=== PATIENT | male | born 1990 | race Caucasian/White ===

== ENCOUNTER 2019-09-28 12:54 | Emergency (ER) | payer BC ==
[2019-09-28] MEDS ORDERED: Lidocaine 1% 20 ML MDV INJECT ONE (13:36)
[2019-09-28] MEDS ORDERED: Bacitracin Oint 28.35 GM Tube TOP ONE (13:51)
--- NOTE | 2019-09-28 13:54 | EDM.PDOC ---
ED HPI GENERAL MEDICAL PROBLEM - General Chief Complaint: Laceration Stated Complaint: RT MIDDLE FINGER CUT Time Seen by Provider: 09/28/19 13:25 Source of Information: Reports: Patient History Limitations: Reports: No Limitations - History of Present Illness INITIAL COMMENTS - FREE TEXT/NARRATIVE: Was cleaning his ice machine at work when he cut the pad of the right middle finger. He attempted to put pressure on int but was not able to control the bleeding with that. There is a flap noted to the pad of the finger that is still attached on one side. He has good sensation to the tip of the finger. Minimal amount of pain noted. Onset: Today Location: Reports: Upper Extremity, Right Right Finger-Middle Pain Score (Numeric/FACES): 2 - Related Data Allergies Allergy/AdvReac Type Severity Reaction Status Date / Time Penicillins Allergy Rash Verified 09/28/19 13:00 Home Meds: Home Meds . [No Known Home Meds] 09/28/19 [History] Past Medical History - Past Health History Medical/Surgical History: Denies Medical/Surgical History Social & Family History - Family History Family Medical History: Noncontributory - Tobacco Use Smoking Status *Q: Never Smoker Second Hand Smoke Exposure: No - Caffeine Use Caffeine Use: Reports: None - Recreational Drug Use Recreational Drug Use: No ED ROS GENERAL - Review of Systems Review Of Systems: See Below Constitutional: Reports: No Symptoms Skin: Reports: Wound (right middle finger) ED EXAM, SKIN/RASH Exam: See Below Exam Limited By: No Limitations General Appearance: Alert, WD/WN, No Apparent Distress Skin: Warm, Dry, Wound/Incision (flap laceration to the pad of the right middle finger. This is contiuing to bleed in spite of the pressure that he has been applying. Good sensation noted distally to the tip of the finger.) ED SKIN PROCEDURES - Laceration/Wound Repair Right Middle Digit - 3rd (Middle) Appearance: Subcutaneous Distal NVT: Neuro & Vascular Intact Anesthetic Type: Digital Local Anesthesia - Lidocaine (Xylocaine): 1% Plain Local Anesthetic Volume: 4cc Skin Prep: Saline Exploration/Debridement/Repair: No Foreign Material Found Closed with: Sutures Lac/Wound length In cm: 1.2 Suture Size: 5-0 # of Sutures: 3 Suture Type: Nylon, Interrupted Tetanus Status Addressed: Yes Complications: No Complication Description: flap was easily realignned and 3 sutures were used to hold flap in place. This was fairly thin flap. Then applied steri strips over that. Discussed that since it was superficial that it ight not reattach and some of the skin may off. He voices understanding and bleeding hemostasis was achieved after sutures inserted. Course - Vital Signs Last Recorded V/S: Last Vital Signs Temp 97.3 F 09/28/19 13:02 Pulse 60 09/28/19 13:02 Resp 18 09/28/19 13:02 BP 141/89 H 09/28/19 13:02 Pulse Ox 96 09/28/19 13:02 - Orders/Labs/Meds Meds: Medications Discontinued Medications Generic Name Dose Route Start Last Admin Trade Name Freq PRN Reason Stop Dose Admin Bacitracin 0 gm 09/28/19 14:00 Bacitracin Oint TOP TID RICHY Bacitracin 0 gm 09/28/19 13:51 09/28/19 14:04 Bacitracin Oint TOP 09/28/19 13:52 Not Given STAT ONE Lidocaine HCl 20 ml 09/28/19 13:36 09/28/19 13:41 Xylocaine 1% INJECT 09/28/19 13:37 20 ml ONETIME ONE Administration Neomycin/Polymyxin/Bacitracin 0 gm 09/28/19 14:02 09/28/19 14:55 Triple Antibiotic Oint TOP 09/28/19 14:03 Not Given ONETIME ONE Neomycin/Polymyxin/Bacitracin 1 each 09/28/19 14:56 09/28/19 14:57 Triple Antibiotic Oint TOP 09/28/19 14:57 1 each ONETIME ONE Administration Departure - Departure Time of Disposition: 13:54 Disposition: Home, Self-Care 01 Condition: Good Clinical Impression: Laceration of finger of right hand Qualifiers: Encounter type: initial encounter Finger: middle finger Damage to nail status: without damage Foreign body presence: without foreign body Qualified Code(s): S61.212A - Laceration without foreign body of right middle finger without damage to nail, initial encounter - Discharge Information *PRESCRIPTION DRUG MONITORING PROGRAM REVIEWED*: Not Applicable *COPY OF PRESCRIPTION DRUG MONITORING REPORT IN PATIENT CALVIN: Not Applicable Instructions: Wound Care, Adult Referrals: PCP,Unknown [Primary Care Provider] - Forms: ED Department Discharge Additional Instructions: Keep clean and dry replace steri strip if it does fall off keep covered to keep clean stitches out in 10 days tylenol or advl as needed for pain Recheck or call clinic if any sign of infection Sepsis Event Note - Evaluation Sepsis Screening Result: No Definite Risk - Focused Exam Date Exam was Performed: 09/30/19 Time Exam was Performed: 14:17 - Problem List & Annotations (1) Laceration of finger of right hand SNOMED Code(s): 814277313 Code(s): S61.219A - LACERATION W/O FB OF UNSP FINGER W/O DAMAGE TO NAIL, INIT Status: Acute Priority: High Qualifiers: Encounter type: initial encounter Finger: middle finger Damage to nail status: without damage Foreign body presence: without foreign body Qualified Code(s): S61.212A - Laceration without foreign body of right middle finger without damage to nail, initial encounter - Problem List Review Problem List Initiated/Reviewed/Updated: Yes
[2019-09-28] MEDS ORDERED: Bacitracin Oint 28.35 GM Tube TOP SCH (14:00)
[2019-09-28] MEDS: Bacitracin/Neomycin/Polymyxin B Oint 28.4 GM Tube TOP ONE ×2 (14:03→14:55)
[2019-09-28] MEDS ORDERED: Bacitracin/Neomycin/Polymyxin B Oint 0.9 GM U/D Packet TOP ONE (14:56)
== END 2019-09-28 14:15 | disposition home or self-care (01) ==
LOC: CC.ED 12:54
DX: S61.212A Laceration without foreign body of right middle finger without damage to nail, initial encounter (principal); Z88.0 Allergy status to penicillin; W26.8XXA Contact with other sharp object(s), not elsewhere classified, initial encounter; Y99.0 Civilian activity done for income or pay; Y92.89 Other specified places as the place of occurrence of the external cause
CPT/HCPCS: 12001; 99282; A9270-GY; J2001

== ENCOUNTER 2020-08-18 03:20 | Emergency (ER) | payer BC ==
[2020-08-18] MEDS ORDERED: MVI, Adult with Vitamin K 10 ML, Folic Acid 1 MG, Thiamine 100 MG, Magnesium Sulfate 2 ... IV ONE ×5 (03:52)
[2020-08-18] MEDS ORDERED: LORazepam 2 MG/ML Syringe IVPUSH ONE (03:52)
--- NOTE | 2020-08-18 03:54 | EDM.PDOC ---
ED HPI GENERAL MEDICAL PROBLEM - General Chief Complaint: General Stated Complaint: hypoglycemia Time Seen by Provider: 08/18/20 03:45 Source of Information: Reports: Patient History Limitations: Reports: No Limitations - History of Present Illness INITIAL COMMENTS - FREE TEXT/NARRATIVE: This patient is a 30 year old male that presents to the ER with at bedside. Patient reports that started 2 days ago with sinus frontal headache, congestion, runny nose, "cold". He reports his has same symptoms of a cold. Patient reports that tonight he went out and started drinking. Patient reports he drank several beers. He reports going home after midnight and feeling fine. He reports he was drunk, but feeling fine. He reports he went to sleep, then at about 2:30am he had a runny nose that was "running like a faucet," and woke him up. He reports he woke up and was shaky all over. He reports that he started having numbness/tingling from his necks to the bilateral arms/hands/fingertips. The patient reports he has never felt this way before. Patient reports they both were positive for COVID in early March. reports they recently had a baby and a couple weeks ago both were tested for COVID antibodys and both still had them per . Onset: Today Onset Date: 08/18/20 Onset Time: 14:30 Location: Reports: Upper Extremity, Left, Upper Extremity, Right Quality: Reports: Other (numbness/tingling/shaking) Severity: Moderate Improves with: Reports: None Worsens with: Reports: None Associated Symptoms: Reports: No Other Symptoms, Headaches (frontal sinus), Nausea/Vomiting (nausea). Denies: Confusion, Chest Pain, Cough, cough w sputum, Diaphoresis, Fever/Chills, Loss of Appetite, Malaise, Rash, Seizure, Shortness of Breath, Syncope, Weakness - Related Data Allergies Allergy/AdvReac Type Severity Reaction Status Date / Time Penicillins Allergy Rash Verified 08/18/20 03:26 Home Meds: Home Meds . [No Known Home Meds] 09/28/19 [History] Past Medical History - Past Health History Medical/Surgical History: Denies Medical/Surgical History - Past Surgical History HEENT Surgical History: Reports: Eye Surgery Social & Family History - Family History Family Medical History: No Pertinent Family History - Tobacco Use Tobacco Use Status *Q: Never Tobacco User Second Hand Smoke Exposure: No - Caffeine Use Caffeine Use: Reports: Soda - Recreational Drug Use Recreational Drug Use: No ED ROS GENERAL - Review of Systems Review Of Systems: See Below Constitutional: Reports: No Symptoms HEENT: Reports: Rhinitis, Sinus Problem (congestion, frontal sinus headache) Respiratory: Reports: No Symptoms. Denies: Shortness of Breath, Cough, Sputum Cardiovascular: Reports: No Symptoms. Denies: Chest Pain, Dyspnea on Exertion, Edema, Lightheadedness, Palpitations, Syncope Endocrine: Reports: No Symptoms GI/Abdominal: Reports: Abdominal Pain (Reports chronic, generalized, not new today.), Nausea. Denies: Vomiting : Reports: No Symptoms Musculoskeletal: Reports: Other (shakey) Skin: Reports: No Symptoms Neurological: Reports: No Symptoms, Numbness (bilateral neck to arms to hands to fingers.), Tingling (bilateral neck to arms to hands to fingers.). Denies: Confusion, Dizziness, Seizure, Difficulty Walking, Gait Disturbance Psychiatric: Reports: Anxiety Hematologic/Lymphatic: Reports: No Symptoms Immunologic: Reports: No Symptoms ED EXAM, GENERAL - Physical Exam Exam: See Below Exam Limited By: No Limitations General Appearance: Alert, WD/WN, Anxious, Mild Distress (hyperventilating) Eye Exam: Bilateral Eye: EOMI, Normal Inspection, PERRL Ears: Normal External Exam, Normal Canal, Hearing Grossly Normal, Normal TMs Ear Exam: Bilateral Ear: Auricle Normal, Canal Normal, TM normal Nose: Normal Inspection, Normal Mucosa, No Blood Throat/Mouth: Normal Inspection, Normal Lips, Normal Teeth, Normal Gums, Normal Oropharynx, Normal Voice, No Airway Compromise Head: Atraumatic, Normocephalic Neck: Normal Inspection, Supple, Non-Tender, Full Range of Motion Respiratory/Chest: No Respiratory Distress, Lungs Clear, Normal Breath Sounds, No Accessory Muscle Use, Chest Non-Tender, Other (Pectus Excavatum chronic) Cardiovascular: Normal Peripheral Pulses, Regular Rate, Rhythm, No Edema, No Gallop, No JVD, No Murmur, No Rub Peripheral Pulses: 2+: Radial (L), Radial (R), Posterior Tibial (L), Posterior Tibial (R), Dorsalis Pedis (L), Dorsalis Pedis (R) GI/Abdominal: Normal Bowel Sounds, Soft, Non-Tender, No Organomegaly, No Distention, No Abnormal Bruit, No Mass, Pelvis Stable (Male) Exam: Deferred Rectal (Males) Exam: Deferred Back Exam: Normal Inspection, Full Range of Motion Extremities: Normal Inspection, Normal Range of Motion, Non-Tender, No Pedal Edema, Normal Capillary Refill Neurological: Alert, Oriented, Normal Cognition, Normal Gait, No Motor/Sensory Deficits Psychiatric: Anxious Skin Exam: Warm, Dry, Intact, Normal Color, No Rash Lymphatic: No Adenopathy Course - Vital Signs Last Recorded V/S: Last Vital Signs Temp 98 F 08/18/20 03:20 Pulse 97 08/18/20 03:20 Resp 18 08/18/20 03:20 BP 150/95 H 08/18/20 03:20 Pulse Ox 100 08/18/20 03:20 - Orders/Labs/Meds Orders: Active Orders 24 hr Category Date Time Status DRUG SCREEN, URINE (NPL) Stat Lab 08/18/20 03:53 Ordered ETOH [ETHANOL BLOOD MEDICAL] [CHEM] Stat Lab 08/18/20 04:10 Received MVI, Adult with Vitamin K [Infuvite Adult] 10 ml Med 08/18/20 03:52 Active Folic Acid 1 mg Thiamine [Vitamin B-1] 100 mg Magnesium Sulfate [Magnesium Sulfate 50%] 2 gm Sodium Chloride 0.9% [Normal Saline] 1,000 ml IV ONETIME Medication Orders Multivitamins/Minerals 10 ml/Folic Acid 1 mg/ Thiamine HCl 100 mg/ Magnesium Sulfate 2 gm / Sodium Chloride 1,015.2 mls @ 1,000 mls/hr IV ONETIME ONE Stop: 08/18/20 04:52 Last Admin: 08/18/20 04:34 Dose: 1,000 mls/hr Documented by: Labs: Laboratory Tests 08/18/20 08/18/20 08/18/20 Range/Units 03:47 03:47 03:47 WBC 10.6 H (5.0-10.0) 10^3/uL RBC 4.91 (4.50-6.00) 10^6/uL Hgb 15.5 (14.0-18.0) g/dL Hct 41.6 (40.0-54.0) % MCV 84.7 (82.0-94.0) fL MCH 31.6 (27.0-32.0) pg MCHC 37.3 (33.0-38.0) g/dL RDW Coeff of Glenny 11.3 (11.0-15.0) % Plt Count 252 (150-400) 10^3/uL Neut % (Auto) 82.4 (35-85) % Lymph % (Auto) 11.7 (10-55) % Wood % (Auto) 4.9 (0-16) % Eos % (Auto) 0.8 (0-5) % Baso % (Auto) 0.2 (0-3) % Neut # (Auto) 8.75 H (1.80-7.00) 10^3/uL Lymph # (Auto) 1.24 (1.00-4.80) 10^3/uL Wood # (Auto) 0.52 (0.00-0.80) 10^3/uL Eos # (Auto) 0.08 (0.00-0.45) 10^3/uL Baso # (Auto) 0.02 10^3/uL PT 11.0 (9.7-12.3) SEC INR 1.09 (0.92-1.18) Sodium 137 (136-145) mEq/L Potassium 3.4 L (3.5-5.0) mEq/L Chloride 98 (98-106) mEq/L Carbon Dioxide 22 (21-32) mmol/L BUN 13 (7-18) mg/dL Creatinine 1.0 (0.7-1.3) mg/dL Est Cr Clr Drug Dosing 95.25 mL/min Estimated GFR (MDRD) > 60 (>=60) mL/min Glucose 111 H (75-99) mg/dL Calcium 9.2 (8.4-10.1) mg/dL Magnesium 1.8 (1.8-2.4) mg/dL Total Bilirubin 0.8 (0.0-1.0) mg/dL AST 21 (15-37) U/L ALT 21 (12-78) U/L Alkaline Phosphatase 90 (46-116) U/L Lactate Dehydrogenase 176 (100-190) U/L Creatine Kinase 126 (35-232) U/L Troponin I < 0.017 (0.00-0.06) ng/mL Total Protein 8.4 H (6.4-8.2) g/dL Albumin 4.4 (3.4-5.0) g/dL Lipase 99 (73-393) U/L SARS CoV-2 RNA Rapid DUNCAN (NEGATIVE) 08/18/20 Range/Units 04:10 WBC (5.0-10.0) 10^3/uL RBC (4.50-6.00) 10^6/uL Hgb (14.0-18.0) g/dL Hct (40.0-54.0) % MCV (82.0-94.0) fL MCH (27.0-32.0) pg MCHC (33.0-38.0) g/dL RDW Coeff of Glenny (11.0-15.0) % Plt Count (150-400) 10^3/uL Neut % (Auto) (35-85) % Lymph % (Auto) (10-55) % Wood % (Auto) (0-16) % Eos % (Auto) (0-5) % Baso % (Auto) (0-3) % Neut # (Auto) (1.80-7.00) 10^3/uL Lymph # (Auto) (1.00-4.80) 10^3/uL Wood # (Auto) (0.00-0.80) 10^3/uL Eos # (Auto) (0.00-0.45) 10^3/uL Baso # (Auto) 10^3/uL PT (9.7-12.3) SEC INR (0.92-1.18) Sodium (136-145) mEq/L Potassium (3.5-5.0) mEq/L Chloride (98-106) mEq/L Carbon Dioxide (21-32) mmol/L BUN (7-18) mg/dL Creatinine (0.7-1.3) mg/dL Est Cr Clr Drug Dosing mL/min Estimated GFR (MDRD) (>=60) mL/min Glucose (75-99) mg/dL Calcium (8.4-10.1) mg/dL Magnesium (1.8-2.4) mg/dL Total Bilirubin (0.0-1.0) mg/dL AST (15-37) U/L ALT (12-78) U/L Alkaline Phosphatase (46-116) U/L Lactate Dehydrogenase (100-190) U/L Creatine Kinase (35-232) U/L Troponin I (0.00-0.06) ng/mL Total Protein (6.4-8.2) g/dL Albumin (3.4-5.0) g/dL Lipase (73-393) U/L SARS CoV-2 RNA Rapid DUNCAN Negative (NEGATIVE) Meds: Medications Generic Name Dose Route Start Last Admin Trade Name Freq PRN Reason Stop Dose Admin Multivitamins/Minerals 10 ml/ 1,015.2 mls @ 1,000 mls/hr 08/18/20 03:52 08/18/20 04:34 Folic Acid 1 mg/ Thiamine HCl IV 08/18/20 04:52 1,000 mls/hr 100 mg/ Magnesium Sulfate 2 gm ONETIME ONE Administration / Sodium Chloride Discontinued Medications Generic Name Dose Route Start Last Admin Trade Name Freq PRN Reason Stop Dose Admin Lorazepam 0.5 mg 08/18/20 03:52 08/18/20 04:12 Ativan IVPUSH 08/18/20 03:53 0.5 mg ONETIME ONE Administration - Re-Assessments/Exams Free Text/Narrative Re-Assessment/Exam: 08/18/20 04:28 Patient reports after Ativan that he feels good and could go home now. Patient labs unremarkable. Patient reports he is feeling normal now. He is no longer hyperventilating. Departure - Departure Time of Disposition: 04:36 Disposition: Home, Self-Care 01 Condition: Fair Clinical Impression: Panic attack, Hyperventilation Elevated ETOH level Qualifiers: Blood alcohol level: level not specified Qualified Code(s): R78.0 - Finding of alcohol in blood - Discharge Information *PRESCRIPTION DRUG MONITORING PROGRAM REVIEWED*: Not Applicable *COPY OF PRESCRIPTION DRUG MONITORING REPORT IN PATIENT CALVIN: Not Applicable Instructions: Panic Attack, [id number], Hyperventilation Referrals: PCP,None [Primary Care Provider] - Forms: ED Department Discharge Additional Instructions: Followup with primary care provider Return to the ER for worsening of condition or any emergent concerns Increase fluids Go home and rest Sepsis Event Note (ED) - Evaluation Sepsis Screening Result: No Definite Risk - Focused Exam Vital Signs: Vital Signs Temp Pulse Resp BP Pulse Ox 08/18/20 03:20 98 F 97 18 150/95 H 100 - My Orders Last 24 Hours: My Active Orders 08/18/20 03:52 MVI, Adult with Vitamin K [Infuvite Adult] 10 ml Folic Acid 1 mg Thiamine [Ngoc min B-1] 100 mg Magnesium Sulfate [Magnesium Sulfate 50%] 2 gm Sodium Chloride 0.9% [Normal Saline] 1,000 ml IV ONETIME 08/18/20 03:53 DRUG SCREEN, URINE (NPL) Stat 08/18/20 04:10 ETOH [ETHANOL BLOOD MEDICAL] [CHEM] Stat - Assessment/Plan Last 24 Hours: My Active Orders 08/18/20 03:52 MVI, Adult with Vitamin K [Infuvite Adult] 10 ml Folic Acid 1 mg Thiamine [Vitamin B-1] 100 mg Magnesium Sulfate [Magnesium Sulfate 50%] 2 gm Sodium Chloride 0.9% [Normal Saline] 1,000 ml IV ONETIME 08/18/20 03:53 DRUG SCREEN, URINE (NPL) Stat 08/18/20 04:10 ETOH [ETHANOL BLOOD MEDICAL] [CHEM] Stat Plan: PLEASE SEE RN NOTE FOR PFSH
[2020-08-18 04:15] LABS: CHLORIDE,CL 98 mEq/L (98-106); SODIUM,NA 137 mEq/L (136-145)
== END 2020-08-18 05:40 | disposition home or self-care (01) ==
LOC: CC.ED 03:20
DX: F41.0 Panic disorder [episodic paroxysmal anxiety] (principal); R06.4 Hyperventilation; R78.0 Finding of alcohol in blood; R51.9 Headache, unspecified; Z88.0 Allergy status to penicillin; Z20.822 Contact with and (suspected) exposure to COVID-19
CPT/HCPCS: 36415; 80053; 80307; 82550; 83615; 83690; 83735; 84484; 85025; 85610; 87635; 96365; 96375; 99283; J2060; J3411; J3475; J7030; J3490; U0002